=== PATIENT | male | born 1970 | race Caucasian/White ===

== ENCOUNTER 2016-11-23 21:11 | Observation (INO) | payer OTHER ==
[~2016-11-23] VITALS: Ht 182.9 cm; Wt 108.0 kg
[~2016-11-23 21:11] MED LIST: CEPH-460 PO; ESCI20TA PO; HYDR-3533 PO; HYDR50CA PO; MIRT1TAB PO; PRED10 PO
[2016-11-23] MEDS ORDERED: SODIUM CHLOR 0.9% 1000 ML INJ 1,000 ML IV ONE (21:15)
[2016-11-23] MEDS ORDERED: SODIUM CHLORIDE 0.9% FLUSH 10 ML FLUSH IVF PRN (21:15)
[2016-11-23 21:17] VITALS: BP 133/77; PULSE 88; RESP 14; TEMP 98; O2SAT 92
--- NOTE | 2016-11-23 21:24 | PD ---
HPI Chief Complaint: Psychiatric Symptoms Time Seen by Provider: 21:15 Travel History International Travel<30 days: No Contact w/Intl Traveler<30days: No Traveled to known affect area: No History of Present Illness HPI 46-year-old male with history ofHypertension, anxiety, presents to the ER today brought in by EMS because patient had taken an intentional overdose of 7 tablets of Lortabs 7.5/325. He had taken the medications about an hour prior to arrival. He currently states he is feeling sleepy. He denies any other ingestions. He states he has been drinking alcohol. He has been Barfield acted. Modifying Factors: None Associated Signs & Symptoms: Barfield act, intentional overdose of Lortabs Risk Factors: None PFSH Past Medical History Anxiety: Yes Depression: Yes Cancer: No Cardiovascular Problems: No Endocrine: No Genitourinary: No Hypertension: Yes Musculoskeletal: Yes (CHRONIC BACK PAIN) Neurologic: No Psychiatric: Yes (PTSD) Reproductive: No Respiratory: No Past Surgical History Abdominal Surgery: Yes (HERNIA REPAIR) Social History Alcohol Use: Yes (~2 X WEEKLY) Tobacco Use: No (QUIT 1988) Substance Use: No Allergies-Medications (Allergen,Severity, Reaction): Coded Allergies: No Known Allergies (Verified , 11/23/16) Reported Meds & Prescriptions Reported Meds & Active Scripts Active Reported Mirtazapine 7.5 Mg Tab 7.5 Mg PO HS PRN Hydroxyzine Pamoate 50 Mg Cap 50 Mg PO HS PRN Escitalopram (Escitalopram Oxalate) 20 Mg Tab 20 Mg PO HS Lortab (Hydrocodone-Acetaminophen) 5-325 Mg Tab 1 Tab PO Q8HR PRN Review of Systems Except as stated in HPI: all other systems reviewed are Neg Physical Exam Narrative GENERAL: Well-developed middle age white male patient currently mildly somnolent and oriented 3. SKIN: Focused skin assessment warm/dry. HEAD: Atraumatic. Normocephalic. EYES: Pupils are small equal and round. No scleral icterus. No injection or drainage. ENT: No nasal bleeding or discharge. Mucous membranes pink and moist. NECK: Trachea midline. No JVD. CARDIOVASCULAR: Regular rate and rhythm. No murmur appreciated. RESPIRATORY: No accessory muscle use. Clear to auscultation. Breath sounds equal bilaterally. GASTROINTESTINAL: Abdomen soft, non-tender, nondistended. Hepatic and splenic margins not palpable. MUSCULOSKELETAL: No obvious deformities. No clubbing. No cyanosis. No edema. NEUROLOGICAL: Awake and alert. No obvious cranial nerve deficits. Motor grossly within normal limits. Normal speech. PSYCHIATRIC: Appropriate mood and affect; insight and judgment normal. Data Data Last Documented VS Vital Signs Date Time Temp Pulse Resp B/P Pulse Ox O2 Delivery O2 Flow Rate FiO2 11/23/16 21:30 14 97 Nasal Cannula 4 11/23/16:17 98.0 88 133/77 Orders Electrocardiogram (11/23/16 21:15) Complete Blood Count With Diff (11/23/16 21:15) Comprehensive Metabolic Panel (11/23/16 21:15) Urinalysis - C+S If Indicated (11/23/16 21:15) Iv Access Insert/Monitor (11/23/16 21:15) Ecg Monitoring (11/23/16 21:15) Oximetry (11/23/16 21:15) Sodium Chloride 0.9% Flush (Ns Flush) (11/23/16 21:15) Sodium Chlor 0.9% 1000 Ml Inj (Ns 1000 M (11/23/16 21:15) Call Poison Control (11/23/16 21:15) Drug Screen, Random Urine (11/23/16 21:15) Alcohol (Ethanol) (11/23/16 21:15) Salicylates (Aspirin) (11/23/16 21:15) Tylenol (Acetaminophen) (11/23/16 21:15) Labs Laboratory Tests Test 11/23/16 21:37 White Blood Count 5.8 TH/MM3 Red Blood Count 4.38 MIL/MM3 Hemoglobin 13.5 GM/DL Hematocrit 39.2 % Mean Corpuscular Volume 89.4 FL Mean Corpuscular Hemoglobin 30.9 PG Mean Corpuscular Hemoglobin 34.6 % Concent Red Cell Distribution Width 13.1 % Platelet Count 156 TH/MM3 Mean Platelet Volume 8.3 FL Neutrophils (%) (Auto) 42.7 % Lymphocytes (%) (Auto) 45.8 % Monocytes (%) (Auto) 8.4 % Eosinophils (%) (Auto) 2.6 % Basophils (%) (Auto) 0.5 % Neutrophils # (Auto) 2.5 TH/MM3 Lymphocytes # (Auto) 2.7 TH/MM3 Monocytes # (Auto) 0.5 TH/MM3 Eosinophils # (Auto) 0.2 TH/MM3 Basophils # (Auto) 0.0 TH/MM3 CBC Comment DIFF FINAL Differential Comment Sodium Level 139 MEQ/L Potassium Level 3.6 MEQ/L Chloride Level 104 MEQ/L Carbon Dioxide Level 23.9 MEQ/L Anion Gap 11 MEQ/L Blood Urea Nitrogen 15 MG/DL Creatinine 0.83 MG/DL Estimat Glomerular Filtration 99 ML/MIN Rate Random Glucose 95 MG/DL Calcium Level 7.9 MG/DL Total Bilirubin 0.1 MG/DL Aspartate Amino Transf 33 U/L (AST/SGOT) Alanine Aminotransferase 55 U/L (ALT/SGPT) Alkaline Phosphatase 73 U/L Total Protein 7.0 GM/DL Albumin 3.6 GM/DL Salicylates Level 1.9 MG/DL Acetaminophen Level 10.5 MCG/ML Ethyl Alcohol Level 266 MG/DL [facility] Medical Decision Making Medical Screen Exam Complete: Yes Emergency Medical Condition: Yes Medical Record Reviewed: Yes Interpretation(s) EKG shows NSR, no ST elevation or depression, and no arrhythmias. No significant T-wave inversions. Laboratory Tests Test 11/23/16 21:37 Red Blood Count 4.38 MIL/MM3 (4.50-5.90) Lymphocytes (%) (Auto) 45.8 % (9.0-44.0) Monocytes (%) (Auto) 8.4 % (0.0-8.0) Calcium Level 7.9 MG/DL (8.5-10.1) Total Bilirubin 0.1 MG/DL (0.2-1.0) Salicylates Level 1.9 MG/DL (2.8-20.0) Ethyl Alcohol Level 266 MG/DL (0-5) Differential Diagnosis Intentional overdose of opiates and Tylenol, Lico act/rule out coingestions Narrative Course EKG did not show dysrhythmias or QT prolongation. Lab work shows that he has town all levels are elevated but not above need to treat level at this point. An additional 4 hour level would need to be done. Vital signs are stable in the ER. At this point, my plan would be to admit the patient for further observation. Case is discussed with Dr. Long for admission. Diagnosis Primary Impression: Intentional overdose of drug in tablet form Admitting Information Admitting Physician Requests: Admit Rodrigo Sanches MD November 23, 2016 21:24
[2016-11-23 21:30] VITALS: RESP 14; O2SAT 97
[2016-11-23 22:08] LABS: AUTOMATED NEUTROPHIL # 2.5 TH/MM3 (1.8-7.7); BASOPHIL % 0.5 % (0.0-2.0); EOSINOPHIL # 0.2 TH/MM3 (0-0.4); EOSINOPHIL % 2.6 % (0.0-4.0); HEMATOCRIT 39.2 % (39.0-51.0); HEMO FLAGS DIFF FINAL; LYMPH % 45.8 % (9.0-44.0); LYMPHOCYTE # 2.7 TH/MM3 (1.0-4.8); MEAN CELL VOLUME 89.4 FL (80.0-100.0); MEAN CORPUSCULAR HEMOGLOBIN 30.9 PG (27.0-34.0); MEAN CORPUSCULAR HGB CONC 34.6 % (32.0-36.0); MONO % 8.4 % (0.0-8.0); NEUT % 42.7 % (16.0-70.0); PLATELET COUNT 156 TH/MM3 (150-450); RED BLOOD COUNT 4.38 MIL/MM3 (4.50-5.90); RED CELL DISTRIBUTION WIDTH 13.1 % (11.6-17.2); WHITE BLOOD COUNT 5.8 TH/MM3 (4.0-11.0)
[2016-11-23 22:32] LABS: ANION GAP 11 MEQ/L (5-15); AST (GOT) 33 U/L (15-37); BICARBONATE 23.9 MEQ/L (21.0-32.0); BLOOD UREA NITROGEN 15 MG/DL (7-18); CHLORIDE 104 MEQ/L (98-107); GLOMERULAR FILTRATION RATE 99 ML/MIN (>89); POTASSIUM 3.6 MEQ/L (3.5-5.1); SODIUM (NA) 139 MEQ/L (136-145)
[2016-11-23 22:35] LABS: ACETAMINOPHEN 10.5 MCG/ML (10.0-30.0); ALKALINE PHOSPHATASE 73 U/L (45-117); ALT (GPT) 55 U/L (12-78); TOTAL BILIRUBIN ADULT 0.1 MG/DL (0.2-1.0)
[2016-11-23 23:14] VITALS: BP 133/77; PULSE 84; RESP 16; O2SAT 98
--- NOTE | 2016-11-23 23:21 | HHI.HP ---
HPI Service [facility] Primary Care Physician [facility] Admission Diagnosis intentional overdose of Tylenol and opiates/Barfield act Diagnoses: (1) Intentional overdose of drug in tablet form Diagnosis: Principal (2) Suicide attempt Diagnosis: Principal (3) Depression Diagnosis: Principal Travel History International Travel<30 Days: No Contact w/Intl Traveler <30 Da: No Traveled to Known Affected Are: No History of Present Illness This is a 46-year-old male with a PMH of Anxiety, Depression, Chronic Back Pain and PTSD was brought to the ER by EMS under Barfield Act secondary to intentional overdose. Per EMS, patient reported that he had ingested 10 tablets of Lortab 7.5/325mg, however only noted to have 7 tablets missing from bottle. Ingestion occurred approx 1hr prior to arrival in ER. Noted to be mildly somnolent on arrival, however easily rousable. On arrival, BP 133/77, HR 80, O2 sat 92% on RA, Afebrile. CBC unremarkable. Chemistry essentially unremarkable. UA and urine Drug Screen pending. Alcohol 266. Tylenol 10.5. Salicylate 1.9. Poison Control contacted, recommended repeat Tylenol level in 4 hours and further monitoring. Review of Systems Except as stated in HPI: all other systems reviewed are Neg ROS: 14 point review of systems otherwise negative. Past Family Social History Past Medical History PMH: Anxiety, Depression, Chronic Back Pain and PTSD Past Surgical History PAST SURGICAL HISTORY: Hernia Repair Allergies: Coded Allergies: No Known Allergies (Verified , 11/23/16) Family History PAST FAMILY HISTORY: Reviewed. No h/o DM or CAD Social History PAST SOCIAL HISTORY: Occasional alcohol. Reportedly negative for tobacco or drugs. Physical Exam Vital Signs Vital Signs Date Time Temp Pulse Resp B/P Pulse Ox O2 Delivery O2 Flow Rate FiO2 11/23/16 23:14 84 16 133/77 98 Nasal Cannula 2 11/23/16 21:30 14 97 Nasal Cannula 4 11/23/16 21:17 98.0 88 14 133/77 92 Physical Exam PE: GENERAL: Middle-aged male in no acute distress. HEENT: PERRLA, EOMI. No scleral icterus or conjunctival pallor. No lid lag or facial droop. CARDIOVASCULAR: Regular rate and rhythm. No obvious murmurs to auscultation. No chest tenderness to palpation. RESPIRATORY: No obvious rhonchi or wheezing. Clear to auscultation. Breath sounds equal bilaterally. GASTROINTESTINAL: Abdomen soft, non-tender, nondistended. BS normal. MUSCULOSKELETAL: Extremities without clubbing, cyanosis, or edema. No obvious deformities. NEUROLOGICAL: Awake, alert and oriented x4. No focal neurologic deficits. Moving both upper and lower extremities spontaneously. Laboratory Laboratory Tests Test 11/23/16 21:37 White Blood Count 5.8 Red Blood Count 4.38 Hemoglobin 13.5 Hematocrit 39.2 Mean Corpuscular Volume 89.4 Mean Corpuscular Hemoglobin 30.9 Mean Corpuscular Hemoglobin 34.6 Concent Red Cell Distribution Width 13.1 Platelet Count 156 Mean Platelet Volume 8.3 Neutrophils (%) (Auto) 42.7 Lymphocytes (%) (Auto) 45.8 Monocytes (%) (Auto) 8.4 Eosinophils (%) (Auto) 2.6 Basophils (%) (Auto) 0.5 Neutrophils # (Auto) 2.5 Lymphocytes # (Auto) 2.7 Monocytes # (Auto) 0.5 Eosinophils # (Auto) 0.2 Basophils # (Auto) 0.0 CBC Comment DIFF FINAL Differential Comment Sodium Level 139 Potassium Level 3.6 Chloride Level 104 Carbon Dioxide Level 23.9 Anion Gap 11 Blood Urea Nitrogen 15 Creatinine 0.83 Estimat Glomerular Filtration 99 Rate Random Glucose 95 Calcium Level 7.9 Total Bilirubin 0.1 Aspartate Amino Transf 33 (AST/SGOT) Alanine Aminotransferase 55 (ALT/SGPT) Alkaline Phosphatase 73 Total Protein 7.0 Albumin 3.6 Salicylates Level 1.9 Acetaminophen Level 10.5 Ethyl Alcohol Level 266 Result Diagram: 11/23/16213611/23/162136 Assessment and Plan Problem List: (1) Intentional overdose of drug in tablet form ICD Code: T50.902A Status: Acute (2) Suicide attempt ICD Code: T14.91 Status: Acute (3) Depression ICD Code: F32.9 Status: Acute Assessment and Plan A/P: 1. Intentional Overdose: reportedly took 10 tablets of Lortab 7.5/325mg approx 1hr prior to arrival, however per EMS only 7 tablets missing. Poison Control contacted, initial Tylenol level 10.5, recommended repeat level 4hrs later. Will admit for Observation, telemetry, close monitoring. Repeat Tylenol in am. IVF for hydration. 2. Suicide Attempt: h/o Depression, relayed intent to hurt himself by overdose. Currently under Barfield Act. Sitter. Consult Psych for further eval. 3. Depression: On antidepressant therapy, will likely need adjustment. Consult Psych as above for further recommendations. 4. DVT Prophylaxis: SCD/Teds. 5. Social work for d/c planning as needed. 6. Case discussed w/ ER physician at length. Lolly Long MD November 23, 2016 23:21
[2016-11-23] MEDS ORDERED: SODIUM CHLORIDE 0.9% FLUSH 10 ML FLUSH IV FLUSH PRN (23:30)
[2016-11-23] MEDS ORDERED: BISACODYL 10 MG SUPP RECTAL PRN (23:30)
[2016-11-23] MEDS ORDERED: ONDANSETRON HCL 4 MG/2 ML VIAL IVP PRN (23:30)
[2016-11-24] MEDS: SODIUM CHLOR 0.9% 1000 ML INJ 1,000 ML IV SCH ×2 (00:30→09:19)
[2016-11-24 02:07] VITALS: BP 155/92; PULSE 87; RESP 18; TEMP 98.2; O2SAT 95
[2016-11-24 05:50] LABS: AUTOMATED NEUTROPHIL # 1.5 TH/MM3 (1.8-7.7); BASOPHIL % 0.9 % (0.0-2.0); EOSINOPHIL # 0.1 TH/MM3 (0-0.4); EOSINOPHIL % 3.2 % (0.0-4.0); HEMATOCRIT 40.7 % (39.0-51.0); HEMO FLAGS DIFF FINAL; LYMPH % 46.3 % (9.0-44.0); LYMPHOCYTE # 1.7 TH/MM3 (1.0-4.8); MEAN CELL VOLUME 90.3 FL (80.0-100.0); MEAN CORPUSCULAR HEMOGLOBIN 30.1 PG (27.0-34.0); MEAN CORPUSCULAR HGB CONC 33.3 % (32.0-36.0); NEUT % 39.6 % (16.0-70.0); PLATELET COUNT 130 TH/MM3 (150-450); RED BLOOD COUNT 4.51 MIL/MM3 (4.50-5.90); RED CELL DISTRIBUTION WIDTH 13.3 % (11.6-17.2); WHITE BLOOD COUNT 3.7 TH/MM3 (4.0-11.0)
[2016-11-24 06:08] LABS: ACETAMINOPHEN 5.8 MCG/ML (10.0-30.0); ALKALINE PHOSPHATASE 62 U/L (45-117); ALT (GPT) 56 U/L (12-78); ANION GAP 9 MEQ/L (5-15); AST (GOT) 32 U/L (15-37); BICARBONATE 26.5 MEQ/L (21.0-32.0); BLOOD UREA NITROGEN 14 MG/DL (7-18); CHLORIDE 107 MEQ/L (98-107); GLOMERULAR FILTRATION RATE 107 ML/MIN (>89); POTASSIUM 3.9 MEQ/L (3.5-5.1); SODIUM (NA) 142 MEQ/L (136-145); TOTAL BILIRUBIN ADULT 0.2 MG/DL (0.2-1.0)
[2016-11-24 07:40] VITALS: BP 131/82; PULSE 91; RESP 20; TEMP 97.2; O2SAT 96
[2016-11-24] MEDS ORDERED: SODIUM CHLORIDE 0.9% FLUSH 10 ML FLUSH IV FLUSH SCH (09:00)
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
--- NOTE | 2016-11-24 10:50 | HHI.DCPOC ---
Discharge Care Plan Diagnosis: (1) Intentional overdose of drug in tablet form (2) Suicide attempt (3) Depression Goals to Promote Your Health * To prevent worsening of your condition and complications * To maintain your health at the optimal level Directions to Meet Your Goals Take your medications as prescribed Follow your dietary instruction Follow activity as directed Keep your appointments as scheduled Take your immunizations and boosters as scheduled If your symptoms worsen call your PCP, if no PCP go to Urgent Care Center or Emergency Room Smoking is Dangerous to Your Health. Avoid second hand smoke Call the 24-hour hour crisis hotline for domestic abuse at Kimberlee Rivera PA-C November 24, 2016 10:50
--- NOTE | 2016-11-24 12:02 | PD.CONS ---
Provisional Diagnosis Admission Date November 23, 2016 at 23:14 [place] I. Substance induced mood disorder, PTSD, alcohol use disorder [place] II. Deferred [place] III. Lower back and neck pain [place] IV. , but [place] V. 55 History of Present Illness Service Psychiatry Consult Requested By Primary Care Physician [facility] HPI The patient is a 46-year-old man, domicile with his daughter in [place], he is but , , service connected, employed , with psychiatric history of PTSD, no previous psychiatric hospitalizations, no previous suicidal attempts, active outpatient care in the [place] clinic, he is on Lexapro 20 mg, prazosin, medical history Chronic Back Pain , who was brought to the ER by EMS under Barfield Act secondary to intentional overdose. Reportedly took 10 tablets of Lortab 7.5/325mg approx 1hr prior to arrival, however per EMS only 7 tablets missing. Poison Control contacted, initial Tylenol level 10.5, recommended repeat level 4hrs later, tylenol level downtrending to 5.8. Admitted for Observation. Monitored on telemetry, no acute events. EKG wnl. Given IVF for hydration. Patient AAOx4, tolerating oral intake. D/c fluids and telemetry. Patient BAL was 266. On psychiatric evaluation today patient is calm, cooperative and pleasant. He reports that he did not overdose with the intention to . He says that he maybe took about 6-7 pills of his pain medication with alcohol in order to "just go to sleep calmly". Patient says that he has been having frequent arguments with his , "but I am not depressed, just as stressed and overwhelmed." He denies suicidal or homicidal ideation, he denies visual and auditory hallucination at this moment, patient is oriented 3, no delirium, no attention deficit present. Patient says that he takes Lexapro and prazosin for his PTSD, with good response, no side effects , he denies flashbacks, he denies nightmares, hypervigilance. Patient says that he has been stable of his PTSD long time. Patient reports almost daily use of alcohol, "mostly in the week and", 6-8 beers, yesterday he also had some vodka. He denies the use of illicit drugs. Review of Systems Constitutional: DENIES: Diaphoretic episodes, Fatigue, Fever, Weight gain, Weight loss, Chills, Dizziness, Change in appetite, Night Sweats Endocrine: DENIES: Heat/cold intolerance, Polydipsia, Polyuria, Polyphagia Eyes: DENIES: Blurred vision, Diplopia, Eye inflammation, Eye pain, Vision loss , Photosensitivity, Double Vision Ears, nose, mouth, throat: DENIES: Tinnitus, Hearing loss, Vertigo, Nasal discharge, Oral lesions, Throat pain, Hoarseness, Ear Pain, Running Nose, Epistaxis, Sinus Pain, Toothache, Odynophagia Respiratory: DENIES: Apneas, Cough, Snoring, Wheezing, Hemoptysis, Sputum production, Shortness of breath Cardiovascular: DENIES: Chest pain, Palpitations, Syncope, Dyspnea on Exertion , PND, Lower Extremity Edema, Orthopnea, Claudication Gastrointestinal: DENIES: Abdominal pain, Black stools, Bloody stools, Constipation, Diarrhea, Nausea, Vomiting, Difficulty Swallowing, Anorexia Genitourinary: DENIES: Sexual dysfunction, Urinary frequency, Urinary incontinence, Urgency, Hematuria, Dysuria, Nocturia, Penile Discharge, Testicular Pain, Testicular Swelling Musculoskeletal: DENIES: Joint pain, Muscle aches, Stiffness, Joint Swelling, Back pain, Neck pain Integumentary: DENIES: Abnormal pigmentation, Nail changes, Pruritus, Rash Hematologic/lymphatic: DENIES: Bruising, Lymphadenopathy Immunologic/allergic: DENIES: Eczema, Urticaria Neurologic: DENIES: Abnormal gait, Headache, Localized weakness, Paresthesias, Seizures, Speech Problems, Tremor, Poor Balance Psychiatric: DENIES: Anxiety, Confusion, Mood changes, Depression, Hallucinations, Agitation, Suicidal Ideation, Homicidal Ideation, Delusions Past Family Social History Coded Allergies: No Known Allergies (Verified , 11/23/16) Reported Medications Mirtazapine 7.5 Mg Tab7.5 Mg PO HS PRN (Depression Control) #30 TAB Ref 0 06/28/16 Hydroxyzine Pamoate 50 Mg Cap50 Mg PO HS PRN (ANXIETY) Ref 0 06/28/16 Escitalopram 20 Mg Tab20 Mg PO HS #30 TAB Ref 0 06/28/16 Discontinued Reported Medications Hydrocodone-Acetaminophen (Lortab)5-325 Mg Tab1 Tab PO Q8HR PRN (PAIN) Ref 0 06/28/16 Discontinued Scripts Cephalexin (Keflex)500 Mg [id number] Mg PO Q6H #28 CAP Ref 0 Prov:Xin Wade 07/03/16 Prednisone 10 Mg Tab10 Mg PO DIRECTED #15 TAB Ref 0 Day 1: take 50 mg. Day 2: take 40 mg. Day 3: take 30 mg. Day 4: take 20 mg. Day 5: take 10 mg. Prov:Xin Wade 07/03/16 Current Medications Medications (Trade) Dose Ordered Sig/Clementine Route Start Time Stop Time Status Last Admin (NS Flush) 2 ml UNSCH PRN IV FLUSH 11/23/16 23:30 (NS Flush) 2 ml BID IV FLUSH 11/24/16 09:00 (Zofran Inj) 4 mg Q6H PRN IVP 11/23/16 23:30 (Dulcolax Supp) 10 mg DAILY PRN RECTAL 11/23/16 23:30 Family History Patient denies family psychiatric history Social History He was born and raised in [place], he lives in [place] with daughter , he is , but , employed, he is a from the [place], service-connected, his highest level of education is college degree in administration. Patient's Strengths (min. 2) [place] service-connected, outpatient psychiatric care Physical Exam On physical exam, no withdrawal, no EPS, tremors, no psychomotor retardation or agitation, no stiffness, present Vital Signs Vital Signs Date Time Temp Pulse Resp B/P Pulse Ox O2 Delivery O2 Flow Rate FiO2 11/24/16 07:40 97.2 91 20 131/82 96 11/23/16 23:14 Nasal Cannula 2 Lab Results Toxicology is negative BAL is 266 Mental Status Examination Appearance man, overweight, good hygiene, calm and cooperative Speech: Unremarkable Orientation: x3 Memory: Unremarkable Thought Process: Logical, Linear Thought Content: Unremarkable Language Fluent and spontaneous Fund of Knowledge Adequate for level of Hallucination Type: None Attention and Concentration: Good Attention Remarks No attention deficit Suicidal Ideation: No Previous Suicide Attempts: No Homicidal Ideation: No Insight: Good Judgment: WNL Affect: Good Affect if Inappropriate: Flat Mood: Appropriate Motor Activity: Normal gait Assessment & Plan Problem List: (1) Posttraumatic stress disorder ICD Code: F43.10 (2) Alcohol abuse with alcohol-induced mood disorder Assessment & Plan: At the moment of this evaluation the patient does not present any acute, concerning her significant psychiatric symptoms that requires an immediate psychiatric intervention or hospitalization. Patient denies suicidal or homicidal ideation, he denies visual and auditory hallucinations. He denies depression, anxiety, anderson and psychosis. Recent overdose with opiates seems to be more accidental than secondary to poor judgment exacerbated with alcohol intoxication. He does not meet criteria for psychiatric admission. [facility] [place] act will be lifted. ICD Code: F10.14 Assessment & Plan Estimated LOS: days Carmine Bates MD November 24, 2016 12:01
--- NOTE | 2016-11-24 16:43 | EKG ---
Date Performed: 11/23/2016 Time Performed: 21:49:50 PTAGE: 46 years EKG: Sinus rhythm POSSIBLE RIGHT VENTRICULAR CONDUCTION DELAY Nonspecific ST-T wave changes Compared to previous sarah ng, the patient is no longer tachycardic BORDERLINE ECG PREVIOUS TRACING : 06/28/2016 17.04 DOCTOR: Ilda Naranjo Interpretating Date/Time 11/24/2016 16:40:59
== END 2016-11-24 13:07 | disposition home or self-care (01) ==
LOC: NEPE 21:11 → NEDA 23:14 → NEPGCP 11-24 01:58
PROVIDERS: ADMIT Internal Medicine; ATTEND Internal Medicine
DX: T39.1X2A Poisoning by 4-Aminophenol derivatives, intentional self-harm, initial encounter (principal); F32.9 Major depressive disorder, single episode, unspecified; F10.14 Alcohol abuse with alcohol-induced mood disorder; F41.9 Anxiety disorder, unspecified; F43.10 Post-traumatic stress disorder, unspecified; G89.29 Other chronic pain; M54.9 Dorsalgia, unspecified; Z87.891 Personal history of nicotine dependence; Y90.8 Blood alcohol level of 240 mg/100 ml or more; R94.31 Abnormal electrocardiogram [ECG] [EKG]
CPT/HCPCS: 80053; 80307; 85025; 93005; 96360; 96361; 99285; G0378; J7030

== ENCOUNTER → 2017-02-11 | Outpatient (CLI) | payer OTHER ==
[~2017-02-11] MED LIST changes: -CEPH-460 PO; +HYDR-3516 PO; -HYDR-3533 PO; +HYDR-3583 PO; +IBUP800T23 PO; +LEXA20TA PO; -PRED10 PO; +PYRI1TAB14 PO
[2017-02-11 08:58] LABS: AUTOMATED NEUTROPHIL # 2.4 TH/MM3 (1.8-7.7); BASOPHIL % 0.9 % (0.0-2.0); EOSINOPHIL # 0.1 TH/MM3 (0-0.4); HEMATOCRIT 40.9 % (39.0-51.0); HEMO FLAGS DIFF FINAL; LYMPH % 32.7 % (9.0-44.0); LYMPHOCYTE # 1.5 TH/MM3 (1.0-4.8); MEAN CELL VOLUME 91.9 FL (80.0-100.0); MEAN CORPUSCULAR HEMOGLOBIN 31.3 PG (27.0-34.0); MONO % 10.2 % (0.0-8.0); NEUT % 53.2 % (16.0-70.0); PLATELET COUNT 149 TH/MM3 (150-450); RED BLOOD COUNT 4.45 MIL/MM3 (4.50-5.90); RED CELL DISTRIBUTION WIDTH 13.5 % (11.6-17.2); WHITE BLOOD COUNT 4.5 TH/MM3 (4.0-11.0)
[2017-02-11 08:59] LABS: APTT (PATIENT) 25.4 SEC (24.3-30.1); INTERNATIONAL NORMALIZED RATIO 0.9 RATIO
[2017-02-11 08:59] LABS: BLOOD, URINE SMALL (NEG); COMMENT (UR) CULT NOT INDICATED; CULTURE IF INDICATED CULT NOT INDICATED; GLUCOSE,URINE NEG (NEG); KETONE, URINE NEG (NEG); NITRITE,URINE NEG (NEG); PH, URINE 5.5 (5.0-8.5); SQUAMOUS EPITHELIAL CELL URINE <1 /hpf (0-5); URINE COLOR YELLOW (YELLW/STRAW)
--- NOTE | 2017-02-11 09:18 | RADRPT ---
EXAM DATE/TIME: 02/11/2017 08:55 [facility] COMPARISON: No previous studies available for comparison. INDICATIONS : Evaluate for pneumonia, pneumothorax or communicable disease. Pre op cervical fusion. MEDICAL HISTORY : None. SURGICAL HISTORY : None. ENCOUNTER: Initial ACUITY: 1 day PAIN SCORE: 0/10 LOCATION: Bilateral chest FINDINGS: PA and lateral views of the chest demonstrate the lungs to be symmetrically aerated without evidence of mass, infiltrate or effusion. The cardiomediastinal contours are unremarkable. Osseous structure s are intact. CONCLUSION: No acute intrathoracic disease. Arley Amaral MD on February 11, 2017 at 9:16 Board Certified Radiologist. This report was verified electronically.
[2017-02-11 09:25] LABS: ANION GAP 5 MEQ/L (5-15); CHLORIDE 107 MEQ/L (98-107); GLOMERULAR FILTRATION RATE 97 ML/MIN (>89); GLUCOSE,FASTING 96 MG/DL (74-99); POTASSIUM 4.2 MEQ/L (3.5-5.1); SODIUM (NA) 139 MEQ/L (136-145)
[2017-02-11 10:11] LABS: ALKALINE PHOSPHATASE 63 U/L (45-117); TOTAL BILIRUBIN ADULT 0.3 MG/DL (0.2-1.0)
[2017-02-11 10:22] LABS: ALT (GPT) 48 U/L (12-78); AST (GOT) 27 U/L (15-37); BLOOD UREA NITROGEN 23 MG/DL (7-18)
--- NOTE | 2017-02-11 14:57 | EKG ---
Date Performed: 02/11/2017 Time Performed: 08:23:13 PTAGE: 46 years EKG: Sinus rhythm NORMAL ECG PREVIOUS TRACING : 11/23/2016 21.49 DOCTOR: Glenda Mendes Interpretating Date/Time 02/11/2017 14:54:36
== END ==
LOC: CPRE 07:57
PROVIDERS: ATTEND Neurological Surgery
DX: Z01.810 Encounter for preprocedural cardiovascular examination (principal); Z01.811 Encounter for preprocedural respiratory examination; Z01.812 Encounter for preprocedural laboratory examination; M50.20 Other cervical disc displacement, unspecified cervical region
CPT/HCPCS: 36415; 71020; 80053; 81001; 85025; 85610; 85730; 93005

== ENCOUNTER 2017-02-25 09:02 | Observation (INO) | payer OTHER ==
[~2017-02-25] VITALS: Ht 182.9 cm; Wt 113.9 kg
[~2017-02-25 09:02] MED LIST changes: -HYDR-3583 PO; -LEXA20TA PO
[2017-02-25] MEDS ORDERED: POVIDONE IODINE 5% (ANTISEPSIS KIT) 4 APPLICATIONS EACH NARE PRN (09:30)
[2017-02-25] MEDS ORDERED: INSULIN HUMAN REGULAR 1,000 UNITS/10 ML VIAL SQ PRN (09:30)
[2017-02-25] MEDS ORDERED: LACTATED RINGER'S 1000 ML IV PRN (09:30)
[2017-02-25] MEDS ORDERED: SODIUM CHLORID 0.9% 500 ML IV PRN (09:30)
[2017-02-25] MEDS ORDERED: CHLORHEXIDINE GLUCONATE 2 % 1 PACK (2 CLOTHS) TOPICAL PRN (09:30)
[2017-02-25] MEDS ORDERED: METOPROLOL TARTRATE 25 MG TAB PO PRN (09:30)
[2017-02-25] MEDS ORDERED: VANCOMYCIN HCL 1000 MG ON-CALL/NS 250 ML IV SCH ×2 (09:45)
[2017-02-25] MEDS ORDERED: SODIUM CHLOR 0.9% 1000 ML INJ 1,000 ML IV SCH (09:45)
[2017-02-25] MEDS ORDERED: LEXA20TA PO (09:48)
[2017-02-25] MEDS ORDERED: ARTIFICIAL TEARS OPTH OINT 3.5 APPLIC/3.5 GM TUBO ONE (12:39)
[2017-02-25] MEDS ORDERED: MIDAZOLAM HCL 2 MG/2 ML VIAL ONE (12:39)
[2017-02-25] MEDS ORDERED: fentaNYL CITRATE 250 MCG/5 ML AMP ONE (12:39)
[2017-02-25] MEDS ORDERED: ACETAMINOPHEN 1000 MG/100 ML 100 ML IV ONE (12:39)
[2017-02-25] MEDS ORDERED: FAMOTIDINE 20 MG/2 ML VIAL ONE (12:39)
[2017-02-25] MEDS ORDERED: GELFOAM SIZE 100 ONE (12:52)
[2017-02-25] MEDS ORDERED: MICROFIBRILLAR COLLAGEN HEMOSTAT 70 X 35 MM BANDAGE ONE (12:52)
[2017-02-25] MEDS ORDERED: ceFAZolin 2 GM PREMIX 50 ML ONE (12:52)
[2017-02-25] MEDS ORDERED: THROMBIN (TOPICAL) 5,000 UNIT VIAL ONE (12:52)
[2017-02-25] MEDS ORDERED: GENTAMICIN SULFATE 80 MG/2 ML VIAL ONE (12:53)
[2017-02-25] MEDS ORDERED: SODIUM CHLOR 0.9% 250 ML INJ 250 ML IV ONE (13:30)
[2017-02-25] MEDS ORDERED: ONDANSETRON HCL 4 MG/2 ML VIAL IV PUSH ONE (13:30)
[2017-02-25] MEDS ORDERED: LACTATED RINGER'S 1000 ML INJ 2,000 ML IV ONE (13:30)
[2017-02-25] MEDS ORDERED: PROPOFOL 200 MG/20 ML AMP IV ONE (13:30)
[2017-02-25] MEDS ORDERED: PHENYLEPH/NS 1000 MCG/10 ML SYR IV ONE (13:30)
[2017-02-25] MEDS ORDERED: BISACODYL 10 MG SUPP RECTAL PRN (14:00)
[2017-02-25] MEDS ORDERED: ONDANSETRON HCL 4 MG/2 ML VIAL IV PRN (14:00)
[2017-02-25] MEDS ORDERED: MORPHINE SULFATE 4 MG/ML INJ IV PUSH PRN ×2 (14:00)
[2017-02-25] MEDS ORDERED: SODIUM CHLORIDE 0.9% FLUSH 5 ML FLUSH IVF PRN (14:00)
[2017-02-25] MEDS ORDERED: MIRTAZAPINE 15 MG TAB PO PRN (14:00)
[2017-02-25] MEDS ORDERED: CYCLOBENZAPRINE HCL 10 MG TAB PO PRN (14:00)
[2017-02-25] MEDS ORDERED: cloNIDine HCL 0.1 MG TAB PO/NG PRN (14:00)
[2017-02-25] MEDS ORDERED: RESP: ALBUTEROL 2.5 MG/3 ML NEB (PRN) INH (14:00)
[2017-02-25] MEDS ORDERED: MENTHOL LOZENGE BUCCAL PRN (14:00)
[2017-02-25] MEDS ORDERED: ACETAMINOPHEN 325 MG TAB PO PRN (14:00)
[2017-02-25] MEDS ORDERED: *morphine SULFATE 8 MG/ML PERIprocedure ONLY ONE (17:37)
--- NOTE | 2017-02-25 17:38 | PD.OP ---
Operative Report Date of Surgery: Feb 25, 2017 Preoperative Diagnosis: C6-7 disk herniation Postoperative Diagnosis: C6-7 disk herniation Procedure: C6-7 anterior cervical discectomy and arthroplasty using Mobi C Anesthesia: general Surgeon: Abrahan Larry Shutdown Planner(s): torrie Levin Operation and Findings: INDICATIONS FOR THE PROCEDURE Mr Rosas is a 46 year-old male who presented with intractable neck pain and clinical evidence of C7 cervical radiculopathy. He was found to have a disk herniation at C6-C7 causing significant mass effect on the nerve roots. He has failed multiple modalities of nonsurgical treatment including phsycal therapy, analgesics, antiinflammatories, and pain management with mulriple epidural steroid injections. The severity of his pain and symptoms were affecting her quality of life. An anterior cervical discectomy and arthroplasty were indicated. The xdny-as-yinx details of the surgical procedure, indications, alternatives, risks and potential complications were fully discussed with the patient. The patient fully understood. All his questions were answered. No guarantees were given. He voiced requesting the procedure and signed informed consents. He was offered the alternative of delaying the procedure and continuing with nonsurgical management. DETAILS OF THE SURGICAL PROCEDURE SURGICAL APPROACH A skin incision was made along the middle to inferior cervical crease with a # 10 blade. The dissection was carried out through the platysma exposing the sternocleidomastoid muscle. The cervical spine was approached following the fascial layers of the neck, just medial to the anterior border of the sternocleidomastoid and carotid sheath by a combination of sharp and dull dissection. The omohyoid muscle was identified and carefully dissected laterally and the deep cervical fascia was carefully opened. The longus colli muscles were retracted to each side of the midline. A marker was placed at the C6-C7 disc space and a cross-table lateral x-ray performed with a C-arm. An AP xray was then obtained as well, and the midline of the disk space was defined. SURGICAL DECOMPRESSION In order to decompress the anterior surface of the spinal cord it was necessary to perform a microsurgical resection of the disk. At this point in the procedure the operating microscope was draped in the usual sterile fashion and brought to the field. The rest of the surgical procedure was performed using microdissection technique with the exception of the closure. Under the operative microscopic a self-retaining retractor was placed underneath the longus colli muscle. The annulus was incised with a #15 blade and microdiscectomy was then carefully carried out using angled curets and pituitary forceps. The patient had a large disk extrusion which was producing mass affect on the exiting nerve root. This was carefully dissected with a nerve hock and resected with a think foot plate 2 mm Kerrison under high magnification. The posterior longitudinal ligament was then elevated with an angled curet and incised with a 15 bladed knife. A careful resection of the posterior longitudinal ligament was carried out using a thin footplate 2 mm Kerrison. Extruded disk fragments causing mechanical compression over the exiting C7 nerve root were carefully dissected. The decompression was then carried out laterally, and a bilateral foraminotomy was performed with a 2 mm thin foot Kerrison. The epidural space was the systematically assessed with a nerve hook in search for disk fragments of scar tissue. An excellent decompression was achieved in both, the dural sac and bilateral exiting nerve roots. The incision was then irrigated with a large amount of antibiotic solution INTERBODY ARTHROPLASTY In order to avoid collapse of the disk space which would result in bilateral foraminal stenosis, and in order to maintain disk space height and function minimally development of adjacent level degeneration, it was necessary to place an interbody device. At this point of the procedure, gentle distraction was applied. The size of the interbody device was then assessed using a trial, and a cross table xray was done for confirmation of appropriate size and position of the device. Then the disk space was irrigated with antibiotic solution, and a 15mm by 6mm Mobi C artificial disk was carefully impacted into the disc space C6-C7. An excellent position of the device was achieved. This was confirmed anatomically by feeling the space posterior to the implant and distance to the anterior surface of the dural sac. Radiological confirmation of the position was performed with a cross table AP and lateral X-ray views, performed with the C-arm. COMPLETION OF THE SURGICAL PROCEDURE Once that each interbody device was in an appropriate position, the distraction was discontinued. The position of the device as well as alignment of the spine were assessed anatomically by direct visualization, and radiologically by performing an AP and lateral X-ray of the cervical spine with the C-arm. The position of the implant was excellent. The incision was irrigated with several liters of antibiotic solution. Hemostasis was achieved with a bipolar. A 7 mm True-Ohara drain was left in the prevertebral space and externalized through a separate stab incision. The incision was then closed in layers. 3-0 Vicryl with interrupted sutures was used to close the platysma and subcutaneous tissue. The skin was closed with 4- 0 running subcuticular Vicryl and Dermabond was applied to the skin. The drain was secured with a 3-0 nylon. At the end of the procedure the sponge, needle and instrument counts were all correct. The estimated blood loss was less than 80-100 cc. No blood transfusion was given. No intraoperative complications occurred. The patient received prophylactic antibiotics. The patient was then extubated and transferred to the recovery room in stable condition. Abrahan Larry MD Feb 25, 2017 17:38
[2017-02-25] MEDS: NS + KCL 20 MEQ INJ 1,000 ML IV SCH (17:39)
[2017-02-25] MEDS ORDERED: DO NOT ADM ANY ANTICOAGULANT DRUGS PRN (17:45)
[2017-02-25] MEDS ORDERED: ACETAMINOPHEN/HYDROcodone 325 MG/10 MG TAB PO PRN (18:00)
[2017-02-25] MEDS: DEXAMETHASONE SOD PHOS 4 MG/ML VIAL IV SCH (18:06)
[2017-02-25] MEDS: ACETAMINOPHEN/HYDROcodone 325 MG/10 MG TAB PO PRN (19:39)
[2017-02-25 20:00] VITALS: BP 129/80; PULSE 88; RESP 18; TEMP 97; O2SAT 100
[2017-02-25 21:00] VITALS: BP_SYST 129; BP_SYST 135; BP_DIAS 77; BP_DIAS 80; PULSE 88; PULSE 91; RESP 18; TEMP 97.2; TEMP 97.3; O2SAT 100
[2017-02-25] MEDS ORDERED: ESCITALOPRAM OXALATE 20 MG TAB PO SCH (21:00)
[2017-02-25] MEDS: SODIUM CHLORIDE 0.9% FLUSH 5 ML FLUSH IVF SCH (21:00)
[2017-02-25] MEDS: ceFAZolin 2 GM PREMIX 50 ML IV SCH (22:08)
[2017-02-25] MEDS: DOCUSATE SODIUM 100 MG CAP PO SCH (22:10)
[2017-02-26] MEDS: DEXAMETHASONE SOD PHOS 4 MG/ML VIAL IV SCH ×3 (01:52→12:07)
[2017-02-26] MEDS: ACETAMINOPHEN/HYDROcodone 325 MG/10 MG TAB PO PRN ×3 (03:51→12:07)
[2017-02-26 04:00] VITALS: BP 134/64; PULSE 79; RESP 18; TEMP 97.6; O2SAT 96
[2017-02-26 05:10] VITALS: O2SAT 99
[2017-02-26] MEDS: ceFAZolin 2 GM PREMIX 50 ML IV SCH (05:22)
[2017-02-26 08:00] VITALS: BP 129/71; PULSE 71; RESP 18; TEMP 97.5; O2SAT 94
[2017-02-26] MEDS: NS + KCL 20 MEQ INJ 1,000 ML IV SCH (08:18)
[2017-02-26] MEDS: DOCUSATE SODIUM 100 MG CAP PO SCH (08:23)
[2017-02-26] MEDS: SODIUM CHLORIDE 0.9% FLUSH 5 ML FLUSH IVF SCH (08:27)
[2017-02-26] MEDS ORDERED: PYRIDOXINE HCL 50 MG TAB PO SCH (09:00)
[2017-02-26] MEDS ORDERED: PANTOPRAZOLE SOD 40 MG DELAYED RELEASE TAB PO SCH (09:00)
[2017-02-26] MEDS ORDERED: HYDR-3583 PO (09:21)
--- NOTE | 2017-02-26 09:47 | HHI.DCPOC ---
Discharge Care Plan Diagnosis: (1) Status post cervical arthrodesis Goals to Promote Your Health * To prevent worsening of your condition and complications * To maintain your health at the optimal level Directions to Meet Your Goals Take your medications as prescribed Follow your dietary instruction Follow activity as directed Keep your appointments as scheduled Take your immunizations and boosters as scheduled If your symptoms worsen call your PCP, if no PCP go to Urgent Care Center or Emergency Room Smoking is Dangerous to Your Health. Avoid second hand smoke Call the 24-hour hour crisis hotline for domestic abuse at Mikala Alicea Feb 26, 2017 09:47
--- NOTE | 2017-02-26 09:47 | HHI.DS ---
Discharge Summary Admission Date Feb 25, 2017 at 13:54 Discharge Date: Feb 26, 2017 Admitting Diagnosis s/p ACDF (1) Status post cervical arthrodesis ICD Code: Z98.1 - Arthrodesis status Brief History Mr Rosas is a 46 year-old male who presented with intractable neck pain and clinical evidence of C7 cervical radiculopathy. He was found to have a disk herniation at C6-C7 causing significant mass effect on the nerve roots. He has failed multiple modalities of nonsurgical treatment including physical therapy, analgesics, antiinflammatories, and pain management with multiple epidural steroid injections. The severity of his pain and symptoms were affecting her quality of life. An anterior cervical discectomy and arthroplasty were indicated. Imaging Last Impressions Cervical Spine X-Ray 02/25/17 0000 Signed Impressions: Service Date/Time: Saturday, February 25, 2017 13:39 - CONCLUSION: Limited images as detailed above. Severo Malik Jr., MD PE at Discharge Mr. Rosas is alert, in no apparent distress. Speech is fluent. Mentation intact. His incision is clean and dry, with dermabond dressing in place. Cranial nerve examination: pupils equal, round and reactive to light. Extra- ocular movements are intact. Facial motor are normal and symmetrical. Gross hearing appears intact. Neck is immobilized by a Moniteau J collar. Muscle strength is 5/5 to both deltoid, biceps, triceps, and engine research engineer in the upper extremities. 5/5 to both iliopsoas, quadriceps, hamstrings, plantarflexion, dorsiflexion, and EHL in the lower extremities. Sensory examination is intact to light touch in both the upper and lower extremities. Respiratory: clear No extremity edema Hospital Course Mr. Rosas underwent a C6-7 anterior cervical discectomy and arthroplasty using Mobi C6-7 for disk herniation on 02/25/17. His surgery went well without complications. His OLIVIA drain removed. Activity restrictions, wound care, and signs and symptoms to watch for were fully discussed with the patient. He was discharged home in stable conditions. Pt Condition on Discharge: Stable Discharge Disposition: Discharge Home Discharge Instructions DIET: Follow Instructions for: Soft Diet ADDITIONAL Diet Instructions: advance as tolerated ACTIVITIES You can perform: Weight Bearing As Dionicio ADDITIONAL Activity Instructio: Avoid strenuous activities, heavy lifting, overhead, pushing, pulling, jarring of the neck. Avoid falls. Use warehouse administrative assistant or assistive devices as needed when ambulating. New Medications: Hydrocodone-Acetaminophen (Hydrocodone-Acetaminophen) 10-325 mg Tab 1 TAB PO Q8HR PRN for SEE LABEL COMMENTS, #90 TAB 0 Refills Continued Medications: Escitalopram (Lexapro) 20 Mg Tab 20 MG PO DAILY HS, #30 TAB 0 Refills Hydrocodone-Acetaminophen (Hydrocodone-Acetaminophen) 5-325 mg Tab 1 TAB PO Q4H PRN for PAIN, TAB 0 Refills Hydroxyzine Pamoate (Hydroxyzine Pamoate) 50 Mg Cap 50 MG PO HS PRN for ANXIETY, CAP 0 Refills Mirtazapine (Mirtazapine) 7.5 Mg Tab 7.5 MG PO HS PRN for Depression Control, #30 TAB 0 Refills Pyridoxine (Vitamin B-6) 50 Mg Tab 50 MG PO DAILY, TAB Mikala Alicea Feb 26, 2017 09:47
--- NOTE | 2017-02-26 10:25 | RADRPT ---
EXAM DATE/TIME: 02/25/2017 13:39 [facility] COMPARISON: No previous studies available for comparison. INDICATIONS : C6-7 Artificial disc placement.. MEDICAL HISTORY : Osteoarthritis. Lymphedema. SURGICAL HISTORY : None. ENCOUNTER: Initial ACUITY: 1 day PAIN SCORE: Non-responsive. LOCATION: Cervical spine FINDINGS: 4 magnified C-arm spot views are lateral projections of the cervical spine. There is a prosthetic dis c involving the lower cervical spine. This involves C6-C7. Good alignment seen. Endotracheal tube and esophageal temperature probe obscured the paravertebral soft tissues. A surgical drain noted. CONCLUSION: Limited images as detailed above. Severo Malik Jr., MD on February 26, 2017 at 10:17 Board Certified Radiologist. This report was verified electronically.
--- NOTE | 2017-02-28 16:33 | HHI.NSPN ---
Note Status Status: Progress Note Interval History Diagnosis Note from 02/27 Interval History POD 1 stratus post ACDF doing very well radiculopathy resolved Physical Exam Incision clean and dry no focal motor or sensory deficits Attending Statement POD 1 stable will discharge home instructions were given Abrahan Larry MD Feb 28, 2017 16:33
== END 2017-02-26 12:49 | disposition home or self-care (01) ==
LOC: HSDC 09:02 → HSDI 13:54 → N05A 19:15
PROVIDERS: ADMIT Neurological Surgery; ATTEND Neurological Surgery
DX: M50.123 Cervical disc disorder at C6-C7 level with radiculopathy (principal)
CPT/HCPCS: 00626; 20936; 22551; 22845; 22853; 22856; 72040; 76000; 94150; 96365; 96366; 96375; 96376; 97162; C1713; G0378; G8987; G8988; J0131; J0690; J1100; J1580; J2250; J2270; J2370; J2405; J3010; J3370; J3480; J7050; J7120; L0150; L0172

== ENCOUNTER → 2017-07-29 | Outpatient (CLI) | payer OTHER ==
[~2017-07-29] MED LIST changes: +DEXT1TAB18 PO; -ESCI20TA PO; +HYDR-3583 PO; +IBUP1TAB7 PO; -IBUP800T23 PO; +LEXA20TA PO; -PYRI1TAB14 PO; +PYRI50 PO
--- NOTE | 2017-07-29 09:57 | RADRPT ---
EXAM DATE/TIME: 07/29/2017 09:32 [facility] COMPARISON: No previous studies available for comparison. INDICATIONS : Evaluate for pneumonia, pneumothorax and communicable disease. Pre op for back surgery 07-30-17 MEDICAL HISTORY : None. SURGICAL HISTORY : None. ENCOUNTER: Initial ACUITY: 1 day PAIN SCORE: 0/10 LOCATION: Bilateral cranial FINDINGS: PA and lateral views of the chest demonstrate the lungs to be symmetrically aerated without evidence of mass, infiltrate or effusion. The cardiomediastinal contours are unremarkable. Osseous structure s are intact. CONCLUSION: 1. No active disease. Mohsen Frank MD on July 29, 2017 at 9:51 Board Certified Radiologist. This report was verified electronically.
[2017-07-29 10:08] LABS: AUTOMATED NEUTROPHIL # 1.5 TH/MM3 (1.8-7.7); BASOPHIL % 0.8 % (0.0-2.0); EOSINOPHIL # 0.2 TH/MM3 (0-0.4); EOSINOPHIL % 3.8 % (0.0-4.0); HEMATOCRIT 40.5 % (39.0-51.0); HEMOGLOBIN 14.3 GM/DL (13.0-17.0); LYMPH % 49.1 % (9.0-44.0); LYMPHOCYTE # 2.1 TH/MM3 (1.0-4.8); MEAN CELL VOLUME 92.8 FL (80.0-100.0); MEAN CORPUSCULAR HEMOGLOBIN 32.7 PG (27.0-34.0); MEAN CORPUSCULAR HGB CONC 35.3 % (32.0-36.0); MEAN PLATELET VOLUME 7.9 FL (7.0-11.0); MONO % 10.3 % (0.0-8.0); MONOCYTE # 0.4 TH/MM3 (0-0.9); PLATELET COUNT 178 TH/MM3 (150-450); RED BLOOD COUNT 4.36 MIL/MM3 (4.50-5.90); RED CELL DISTRIBUTION WIDTH 12.9 % (11.6-17.2); WHITE BLOOD COUNT 4.3 TH/MM3 (4.0-11.0)
[2017-07-29 10:17] LABS: BILIRUBIN, URINE NEG (NEG); BLOOD, URINE TRACE (NEG); GLUCOSE,URINE NEG (NEG); HYALINE CAST, URINE 3 /lpf (RARE); KETONE, URINE NEG (NEG); MUCUS URINE FEW /lpf (OCC); NITRITE,URINE NEG (NEG); URINE COLOR YELLOW (YELLW/STRAW); URINE LEUKOCYTE ESTERASE NEG (NEG)
[2017-07-29 10:37] LABS: ALBUMIN 3.8 GM/DL (3.4-5.0); AST (GOT) 55 U/L (15-37); BICARBONATE 29.4 MEQ/L (21.0-32.0); BLOOD UREA NITROGEN 9 MG/DL (7-18); CALCIUM 8.8 MG/DL (8.5-10.1); CHLORIDE 106 MEQ/L (98-107); GLOMERULAR FILTRATION RATE 90 ML/MIN (>89); GLUCOSE,FASTING 83 MG/DL (74-99); SODIUM (NA) 142 MEQ/L (136-145)
[2017-07-29 10:43] LABS: ALKALINE PHOSPHATASE 74 U/L (45-117); ALT (GPT) 100 U/L (12-78); TOTAL BILIRUBIN ADULT 0.2 MG/DL (0.2-1.0); TOTAL PROTEIN 7.5 GM/DL (6.4-8.2)
--- NOTE | 2017-07-29 17:16 | EKG ---
Date Performed: 07/29/2017 Time Performed: 09:02:38 PTAGE: 47 years EKG: Sinus rhythm Normal ECG PREVIOUS TRACING : 02/11/2017 08.23 DOCTOR: Glenda Mendes Interpretating Date/Time 07/29/2017 17:15:15
== END ==
LOC: CPRE 08:38
PROVIDERS: ATTEND Neurological Surgery
DX: Z01.812 Encounter for preprocedural laboratory examination (principal); Z01.810 Encounter for preprocedural cardiovascular examination; Z01.811 Encounter for preprocedural respiratory examination; M51.26 Other intervertebral disc displacement, lumbar region
CPT/HCPCS: 36415; 71046; 80053; 81001; 85025; 85610; 85730; 87640; 87641; 93005

== ENCOUNTER 2017-07-30 05:48 | Observation (INO) | payer OTHER ==
[~2017-07-30] VITALS: Ht 182.9 cm; Wt 123.9 kg
[~2017-07-30 05:48] MED LIST changes: -HYDR-3516 PO; -HYDR-3583 PO; -HYDR50CA PO; -MIRT1TAB PO; -PYRI50 PO
[2017-07-30] MEDS ORDERED: SODIUM CHLORID 0.9% 500 ML IV PRN (06:15)
[2017-07-30] MEDS ORDERED: LACTATED RINGER'S 1000 ML IV PRN (06:15)
[2017-07-30] MEDS ORDERED: POVIDONE IODINE 5% (ANTISEPSIS KIT) 4 APPLICATIONS EACH NARE PRN (06:15)
[2017-07-30] MEDS ORDERED: METOPROLOL TARTRATE 25 MG TAB PO PRN (06:15)
[2017-07-30] MEDS ORDERED: CHLORHEXIDINE GLUCONATE 2 % 1 PACK (2 CLOTHS) TOPICAL PRN (06:15)
[2017-07-30] MEDS ORDERED: ceFAZolin 2 GM PREMIX 50 ML IV SCH (06:15)
[2017-07-30] MEDS ORDERED: ARTIFICIAL TEARS OPTH OINT 3.5 APPLIC/3.5 GM TUBO ONE (07:59)
[2017-07-30] MEDS ORDERED: ACETAMINOPHEN 1000 MG/100 ML 100 ML IV ONE (07:59)
[2017-07-30] MEDS ORDERED: BUPIVACAINE/EPINEPHRINE 0.5% 50 ML VIAL ONE (08:10)
[2017-07-30] MEDS ORDERED: THROMBIN (TOPICAL) 5,000 UNIT VIAL ONE (08:10)
[2017-07-30] MEDS ORDERED: GELFOAM SIZE 100 ONE (08:11)
[2017-07-30] MEDS ORDERED: methylPREDNISolone ACETATE 40 MG/ML VIAL ONE (08:11)
[2017-07-30] MEDS ORDERED: GENTAMICIN SULFATE 80 MG/2 ML VIAL ONE (08:11)
[2017-07-30] MEDS ORDERED: MORPHINE SULFATE 4 MG/ML INJ IV PUSH PRN ×2 (11:30)
[2017-07-30] MEDS ORDERED: cloNIDine HCL 0.1 MG TAB PO/NG PRN (11:30)
[2017-07-30] MEDS ORDERED: GLUCAGON 1 MG/ML VIAL OTHER PRN (11:30)
[2017-07-30] MEDS ORDERED: CYCLOBENZAPRINE HCL 10 MG TAB PO PRN (11:30)
[2017-07-30] MEDS ORDERED: MENTHOL LOZENGE BUCCAL PRN (11:30)
[2017-07-30] MEDS ORDERED: RESP: ALBUTEROL 2.5 MG/3 ML NEB (PRN) INH (11:30)
[2017-07-30] MEDS ORDERED: ACETAMINOPHEN/HYDROcodone 325 MG/10 MG TAB PO PRN (11:30)
[2017-07-30] MEDS ORDERED: ACETAMINOPHEN 325 MG TAB PO PRN (11:30)
[2017-07-30] MEDS ORDERED: DEXTROSE 50% IN WATER 50 ML VIAL(D50) IV PUSH PRN (11:30)
[2017-07-30] MEDS ORDERED: DO NOT ADM ANY ANTICOAGULANT DRUGS PRN (11:36)
[2017-07-30] MEDS ORDERED: MIDAZOLAM HCL 2 MG/2 ML VIAL ONE (11:47)
[2017-07-30] MEDS: SODIUM CHLOR 0.9% 1000 ML INJ 1,000 ML IV SCH ×3 (12:00→23:57)
[2017-07-30] MEDS ORDERED: ONDANSETRON HCL 4 MG/2 ML VIAL IV ONE (12:00)
[2017-07-30] MEDS ORDERED: ceFAZolin INJ 1,000 MG VIAL IV ONE (12:00)
[2017-07-30] MEDS ORDERED: GLYCOPYRROLATE 1 MG/5 ML SYRINGE IV PUSH ONE (12:00)
[2017-07-30] MEDS ORDERED: LIDOCAINE HCL 1% PF 5 ML SYRINGE OTHER ONE (12:00)
[2017-07-30] MEDS ORDERED: DEXAMETHASONE SOD PHOS 4 MG/ML VIAL IV ONE (12:00)
[2017-07-30] MEDS ORDERED: NEOSTIGMINE 5 MG/5 ML SYRINGE IV PUSH ONE (12:00)
[2017-07-30] MEDS ORDERED: ROCURONIUM INJ 50 MG/5 ML SYRINGE IV PUSH ONE (12:00)
[2017-07-30] MEDS ORDERED: PROPOFOL 200 MG/20 ML AMP IV ONE (12:00)
[2017-07-30] MEDS ORDERED: PHENYLEPH/NS 1000 MCG/10 ML SYR IV ONE (12:00)
[2017-07-30] MEDS ORDERED: PHENYLEPHRINE HCL 10 MG/ML VIAL IV ONE (12:00)
--- NOTE | 2017-07-30 12:29 | RADRPT ---
EXAM DATE/TIME: 07/30/2017 09:49 [facility] COMPARISON: No previous studies available for comparison. INDICATIONS : Level Localization L4,L5 for laminectomy. MEDICAL HISTORY : Hypertension. Chronic back pain. Tinnitus. SURGICAL HISTORY : Hernia repair. artifical disk. ENCOUNTER: Initial ACUITY: 1 day PAIN SCORE: Non-responsive. LOCATION: Lumbar spine. FINDINGS: A single lateral view of the lower lumbar spine was performed. A localization device has been placed posteriorly at the second from the bottom disc space level appears to be L4-L5. CONCLUSION: Localization posteriorly at L4-L5 Arley Amaral MD on July 30, 2017 at 12:26 Board Certified Radiologist. This report was verified electronically.
[2017-07-30] MEDS: ACETAMINOPHEN/HYDROcodone 325 MG/10 MG TAB PO PRN ×2 (14:07→19:47)
[2017-07-30 15:29] VITALS: O2SAT 93
[2017-07-30 15:58] VITALS: BP 121/77; PULSE 103; RESP 18; TEMP 97.2; O2SAT 96
[2017-07-30] MEDS: ceFAZolin 2 GM PREMIX 50 ML IV SCH (16:59)
[2017-07-30] MEDS: DOCUSATE SODIUM 100 MG CAP PO SCH (19:47)
[2017-07-30] MEDS: MAGNESIUM HYDROXIDE SUSP 30 ML CUP PO PRN (19:48)
[2017-07-30 20:22] VITALS: O2SAT 97
[2017-07-30 20:25] VITALS: BP 130/84; PULSE 99; RESP 17; TEMP 96.9; O2SAT 96
[2017-07-30] MEDS ORDERED: CHLORHEXIDINE GLUCONATE 4% SOLN 120 ML BTL TOP SCH (21:00)
[2017-07-30] MEDS: CALCIUM CARBONATE 500 MG CHEWABLE TAB PO PRN (22:10)
[2017-07-31] MEDS: ceFAZolin 2 GM PREMIX 50 ML IV SCH ×2 (00:18→07:28)
[2017-07-31] MEDS: CALCIUM CARBONATE 500 MG CHEWABLE TAB PO PRN ×2 (00:19→07:28)
[2017-07-31 00:25] VITALS: BP 129/81; PULSE 114; RESP 17; TEMP 98.5; O2SAT 95
[2017-07-31] MEDS: ONDANSETRON HCL 4 MG/2 ML VIAL IV PUSH PRN ×2 (01:29→07:28)
[2017-07-31 04:30] VITALS: BP 116/73; PULSE 110; RESP 18; TEMP 97.9; O2SAT 95
[2017-07-31] MEDS: SODIUM CHLOR 0.9% 1000 ML INJ 1,000 ML IV SCH (07:27)
[2017-07-31] MEDS: DOCUSATE SODIUM 100 MG CAP PO SCH (07:28)
[2017-07-31] MEDS: MAGNESIUM HYDROXIDE SUSP 30 ML CUP PO PRN (07:29)
[2017-07-31 08:00] VITALS: BP 108/79; PULSE 105; RESP 17; TEMP 98.1; O2SAT 94
[2017-07-31] MEDS ORDERED: PANTOPRAZOLE SOD 40 MG DELAYED RELEASE TAB PO SCH (09:00)
[2017-07-31] MEDS ORDERED: CYCL10TA PO (09:51)
[2017-07-31] MEDS ORDERED: HYDR-3583 PO (09:51)
[2017-07-31] MEDS ORDERED: PNEUMOCOCCAL POLYVALENT INJ 25 MCG/0.5 ML SYR IM ONE (10:00)
[2017-07-31] MEDS ORDERED: INFLUENZA VIRUS VACCINE (QUADRIVALENT) 0.5 ML SYR IM ONE (10:00)
--- NOTE | 2017-07-31 10:40 | HHI.DCPOC ---
Discharge Care Plan Diagnosis: (1) S/P lumbar laminectomy Goals to Promote Your Health * To prevent worsening of your condition and complications * To maintain your health at the optimal level Directions to Meet Your Goals Take your medications as prescribed Follow your dietary instruction Follow activity as directed Keep your appointments as scheduled Take your immunizations and boosters as scheduled If your symptoms worsen call your PCP, if no PCP go to Urgent Care Center or Emergency Room Smoking is Dangerous to Your Health. Avoid second hand smoke Call the 24-hour hour crisis hotline for domestic abuse at Mikala Alicea Jul 31, 2017 10:40
--- NOTE | 2017-07-31 10:41 | HHI.DS ---
Discharge Summary Admission Date Jul 30, 2017 at 11:27 Discharge Date: Jul 31, 2017 Admitting Diagnosis s/p lumbar laminectomy, microdiscectomy (1) S/P lumbar laminectomy ICD Code: Z98.890 - Other specified postprocedural states Imaging Last Impressions Lumbar Spine X-Ray 07/30/17 0000 Signed Impressions: Service Date/Time: Sunday, July 30, 2017 09:49 - CONCLUSION: Localization posteriorly at L4-L5 Arley Amaral MD PE at Discharge Mr. Rosas is alert, awake and oriented to time, place and person. Speech is fluent. Cranial nerve examination: pupils equal, round and reactive to light. Facial motor are normal and symmetrical. Motor: moves all four extremities Respiratory: clear Hospital Course Mr. Rosas underwent right L4-5 hemilaminectomy with microsurgical resection of disc on 07/30/17. His surgery went well without complications. He report right lower extremity radicular pain feels improved. He was discharged home in stable conditions. Pt Condition on Discharge: Stable Discharge Disposition: Discharge Home Discharge Instructions DIET: Follow Instructions for: Heart Healthy Diet ACTIVITIES You can perform: Weight Bearing As Dionicio ADDITIONAL Activity Instructio: Avoid strenuous activities, heavy lifting over 5 lbs, overhead activities, repetitive bending, twisting, pushing, pulling or any activities which might result in stress over the spine. Avoid situation that will put at risk for falls. Use assistive device as needed for walking. Wear provided back brace when out of bed. New Medications: Cyclobenzaprine (Flexeril) 10 Mg Tab 10 MG PO TID for Muscle Spasm, #90 TAB 0 Refills Walker with Front Wheels (Walker with Front Wheels) 1 Mis Mis EA .ROUTE DIRECTED, #1 0 Refills Hydrocodone/Acetaminophen (Hydrocodone-Acetamin 10-325 mg) 10 Mg-325 Mg Tablet 1 TAB PO Q4H PRN for PAIN SCALE 1 TO 5, #90 TAB-CAP 0 Refills Continued Medications: Dextromethorphan-Guaifenesin ER 12 HR (Mucinex DM Maximum Strength) 60-1,200 Mg Tab 1 TAB PO DAILY PRN for NASAL CONGESTION AND/OR COUGH, TAB 0 Refills Escitalopram (Lexapro) 20 Mg Tab 20 MG PO DAILY HS, #30 TAB 0 Refills Ibuprofen (Ibuprofen) 800 Mg Tab 800 MG PO TID for Arthritis Pain, TAB 0 Refills Mikala Alicea Jul 31, 2017 10:41
[2017-07-31 12:46] VITALS: BP 126/76; PULSE 92; RESP 16; TEMP 98.4; O2SAT 94
[2017-07-31] MEDS: ACETAMINOPHEN/HYDROcodone 325 MG/10 MG TAB PO PRN (13:27)
[2017-07-31] MEDS ORDERED: WALKER WHEELS/F1 MIS (14:17)
--- NOTE | 2017-08-01 18:05 | PD.OP ---
Operative Report Date of Surgery: Jul 30, 2017 Preoperative Diagnosis: Lmbar spinal stenosis Postoperative Diagnosis: Lmbar spinal stenosis Procedure: Right L4-5 hemilaminectomy, mesiofacetectomy, foraminotomy, microsurgical dissection Anesthesia: general Surgeon: Abrahan Larry Pulverizer Mill Operator(s): Alondra Nuñez Operation and Findings: INDICATIONS FOR THE SURGICAL PROCEDURE mr Rosas is a 47 year-old male who presented with intractable mechanical back pain and clinical evidence of right L5 lower extremity radiculopathy. He was found to have significant lumbar spinal stenosis with significant mass effect on the neural structures which correlated with the clinical symptoms. He failed maximum nonsurgical management including multiple modalities of conservative treatment as well as pain management interventions by an interventional pain specialist. A surgical decompression was indicated as a last resort. The [id number] details of the procedure, indications, alternatives, risks and potential complications were fully discussed with the patient. The patient fully understood. All the questions were answered. No guarantees were given. The patient voiced requesting the procedure and provided informed consents. The patient was offered the alternative of delaying the procedure and continuing with nonsurgical management. DETAILS OF THE SURGICAL PROCEDURE After the induction of general anesthesia, endotracheal intubation was performed. A Marsh catheter, bilateral JAMILA hose and sequential compression devices were placed and kept throughout the procedure. The patient was positioned prone on a True table over a Ga frame. All pressure points were carefully padded with eggcrate mattress. The eyes were tapped shut after ointment was applied by the anesthesiologist to prevent corneal abrasion. A Sherrie hugger was placed over the exposed lower body to maintain control of the core body temperature. The lower lumbar region was prepped and draped in the usual sterile fashion. A spinal needle was placed for localization and an x- ray performed with a C-arm. A skin incision was made in the midline over the spinous processes L4-L5 with a #10 blade. Small subcutaneous bleeders were controlled with a bipolar and the dissection was carried out through the lumbar fascia exposing the spinous processes. A subperiostial dissection was performed with a Madrigal elevator and a Bovie over the right L4-L5 spinous process lamina and facets. A microdiscectomy self-retaining retractor was placed on the incision and an x- ray was obtained with an instrument placed underneath the lamina of L5. At this point in the procedure the operating microscope was draped in the usual sterile fashion and brought to the field. The rest of the surgical procedure was performed using microsurgical dissection technique with exception of the closure. Once the level was confirmed, a right decompressive laminectomy was performed at L4-L5 using the TPS drill with an AM-8 drill bit. A medial facetectomy was performed and the superior free border of the ligamentum flavum was dissected with a ligament dissector and removed with a thin footplate 2 mm Kerrison. The medial facetectomy was done and the L5 nerve root was identified and followed towards its exit in the foramen. Epidural veins located laterally to the dural sac were coagulated with a bipolar and incised with microscissors. Gentle medial retraction of the dural sac allowed inspection of the disc space. The patient had severe facet arthropathy with hypertrhopy of the joint facets and ligamentum flavum resulting in mass effect over the dural sac and nerve roots. There was a mild broad-based disc bulge without stenosis The incision was irrigated with a large amount of saline solution. A Valsalva maneuver failed to show any cerebrospinal fluid leak or bleeding. The decompression was assessed again and found to be satisfactory. The incision was then closed in layers. The fascia was closed with 0 Vicryl sutures in an interrupted fashion. The superficial fascia was closed with 0 Vicryl sutures. The fascia was infiltrated with 0.5% Marcaine with epinephrine 1:100,000 dilution. The subcutaneous tissue was irrigated then closed with 0 Vicryl and 3 -0 Vicryl. The skin was closed with 4-0 running subcuticular Vicryl. A sterile dressing was applied. At the end of the procedure, the sponge, needle and instrument counts were all correct. Estimated blood loss was less than 50 cc. No blood transfusion was given. No intraoperative complications occurred. The patient received prophylactic antibiotics. The patient was then extubated and transferred to the recovery room in stable condition. Abrahan Larry MD Aug 01, 2017 18:04
== END 2017-07-31 13:50 | disposition home or self-care (01) ==
LOC: HSDC 05:48 → HSDI 11:27 → N06A 14:32
PROVIDERS: ADMIT Neurological Surgery; ATTEND Neurological Surgery
DX: M48.061 Spinal stenosis, lumbar region without neurogenic claudication (principal); M51.26 Other intervertebral disc displacement, lumbar region; M54.16 Radiculopathy, lumbar region; Z23 Encounter for immunization
CPT/HCPCS: 00630; 63030; 72020; 76000; 90471; 90686; 90732; 94150; 96360; 96361; 97163; G0378; G8987; G8988; J0131; J0690; J1030; J1100; J1580; J2250; J2370; J2405; J2710; J3010; J7030; J7120; L0627; 90472; G0008; G0009; Q2038